=== PATIENT | female | born 1975 | race Caucasian/White ===

== ENCOUNTER → 2020-06-15 08:43 | Outpatient (BNVA) | payer OTHER, SELFPAY | PROVIDERS: Family Provider Family Medicine; PCP Family Medicine; Visit Provider Family Medicine | DX: I10 Essential (primary) hypertension (principal); E11.9 Type 2 diabetes mellitus without complications | CPT/HCPCS: 80053; 80061; 82043; 83036; 85025 ==

== ENCOUNTER → 2020-08-04 12:18 | Outpatient (BNVA) | payer OTHER, SELFPAY | PROVIDERS: Family Provider Family Medicine; PCP Family Medicine; Visit Provider Family Medicine | DX: E78.5 Hyperlipidemia, unspecified (principal) | CPT/HCPCS: 80053 ==

== ENCOUNTER → 2020-09-22 08:42 | Outpatient (BNVA) | payer OTHER, SELFPAY | PROVIDERS: Family Provider Family Medicine; PCP Family Medicine; Visit Provider Family Medicine | DX: E11.9 Type 2 diabetes mellitus without complications (principal); E78.5 Hyperlipidemia, unspecified; R10.13 Epigastric pain | CPT/HCPCS: 80053; 80061; 83036 ==

== ENCOUNTER → 2021-01-04 16:47 | Outpatient (BNVA) | payer OTHER, SELFPAY | PROVIDERS: Family Provider Family Medicine; PCP Family Medicine; Visit Provider Obstetrics & Gynecology | DX: N76.0 Acute vaginitis (principal); B37.3 Candidiasis of vulva and vagina; Z12.31 Encounter for screening mammogram for malignant neoplasm of breast | CPT/HCPCS: 82670; 83001; 84443; 87210 ==

== ENCOUNTER 2021-02-16 15:27 | Outpatient (CLI) | payer OTHER, SELFPAY ==
--- NOTE | 2021-02-16 15:30 | MM_ITS ---
WS: [id number] SCREENING DIGITAL MAMMOGRAM WITH CAD HISTORY: Z12.31 - Encounter for screening mammogram for malignant neoplasm of breast COMPARISON: 12/01/2017 Bilateral CC and MLO views submitted. Computer aided detection analyzed. Breast composition: There are scattered areas of fibroglandular density. There is a lobulated mass in the mid LEFT breast at 5:00 measuring 8 x 7 mm. This mass is new or better visualized since the prio [place] study. MM/[place] [id number] IMPRESSION: BI-RADS: 0-Incomplete: Need additional imaging evaluation FOLLOW UP: Need Additional Imaging LEFT breast: Spot compression views (CC and MLO). True ML. Ultrasound to follow if abnormality persists.
== END 2021-02-16 15:28 | disposition home or self-care (01) ==
LOC: RADSHAW 15:33
PROVIDERS: Family Provider Family Medicine; PCP Family Medicine; Visit Provider Obstetrics & Gynecology
DX: Z12.31 Encounter for screening mammogram for malignant neoplasm of breast (principal); N63.13 Unspecified lump in the right breast, lower outer quadrant
CPT/HCPCS: 77067

== ENCOUNTER 2021-03-05 07:56 | Outpatient (CLI) | payer OTHER, SELFPAY ==
--- NOTE | 2021-03-05 08:00 | MM_ITS ---
WS: [id number] ADDITIONAL VIEWS LEFT MAMMOGRAM LEFT BREAST ULTRASOUND HISTORY: N63.20 - Unspecified lump in the left breast, unspecified quadrant COMPARISON: 02/16/2021 and 12/01/2017 LEFT MAMMOGRAM: Spot compression views and true ML. Nodule measuring 8 mm persists in the LEFT breast at 4:00 at middle depth. Margins are partially obsc ured and the nodule is of slight increased x 5 x 10 mm. There is mild peripheral increased vascularit y. This corresponds in size and appearance to the mammographic abnormality. Benign-appearing lymph n odes in the axilla. MM/[place] [id number] IMPRESSION: BI-RADS: 4-Suspicious Finding-Biopsy Should Be Considered FOLLOW UP: Biopsy Recommended Notified Adelfo Petersen MD at 03/05/2021 9:14 AM. Message left on the answering se rvice as no one answered the phone. Message was left for Dr. Petersen to review t his report and that a biopsy was being recommended.
--- NOTE | 2021-03-05 08:45 | US_ITS ---
WS: [id number] ADDITIONAL VIEWS LEFT MAMMOGRAM LEFT BREAST ULTRASOUND HISTORY: N63.20 - Unspecified lump in the left breast, unspecified quadrant COMPARISON: 02/16/2021 and 12/01/2017 LEFT MAMMOGRAM: Spot compression views and true ML. Nodule measuring 8 mm persists in the LEFT breast at 4:00 at middle depth. Margins are partially obsc ured and the nodule is of slight increased x 5 x 10 mm. There is mild peripheral increased vascularit y. This corresponds in size and appearance to the mammographic abnormality. Benign-appearing lymph n odes in the axilla. US/US breast LT limited* [id number] IMPRESSION: BI-RADS: 4-Suspicious Finding-Biopsy Should Be Considered FOLLOW UP: Biopsy Recommended Notified Adelfo Petersen MD at 03/05/2021 9:14 AM. Message left on the answering se rvice as no one answered the phone. Message was left for Dr. Petersen to review t his report and that a biopsy was being recommended.
== END 2021-03-05 07:57 | disposition home or self-care (01) ==
LOC: RADSHAW 07:59
PROVIDERS: PCP Family Medicine; Visit Provider Obstetrics & Gynecology
DX: N63.23 Unspecified lump in the left breast, lower outer quadrant (principal)
CPT/HCPCS: 76642; 77065

== ENCOUNTER → 2021-03-16 08:24 | Outpatient (BNVA) | payer OTHER, SELFPAY | PROVIDERS: PCP Family Medicine; Visit Provider Family Medicine | DX: E11.9 Type 2 diabetes mellitus without complications (principal); E78.5 Hyperlipidemia, unspecified; I10 Essential (primary) hypertension | CPT/HCPCS: 80053; 80061; 83036 ==

== ENCOUNTER 2021-03-21 08:16 | Outpatient (CLI) | payer OTHER, SELFPAY ==
--- NOTE | 2021-03-21 08:30 | US_ITS ---
WS: [id number] ULTRASOUND-GUIDED LEFT BREAST BIOPSY CLINICAL INFORMATION: N63.20 - Unspecified lump in the left breast, unspecified... COMPARISON: None. FINDINGS: The procedure including risks, benefits, and complications were discussed with the patient who agreed to proceed. Using sterile technique patient was prepped and draped in the usual sterile fashion. Aft er 1% lidocaine utilizing real-time ultrasound guidance 5 14-gauge cores were obtained of the left br east lesion at the 4 o'clock position. Subsequently a titanium clip was placed in the biopsy cavity. No immediate complications. Pathology demonstrates A. Breast, left, 4 o'clock, ultrasound-guided biopsy: -Benign breast tissue with fibrocystic changes and adenomatous hyperplasia. -No malignancy identified. US/[place] [id number] IMPRESSION: 1. Uncomplicated ultrasound-guided left breast biopsy. 2. The pathology demonstrates fibrocystic changes. No malignancy identified. 3. Recommend annual screening mammography BI-RADS: 2-Benign FOLLOW UP: 1 Year Follow-up
== END 2021-03-21 08:17 | disposition home or self-care (01) ==
LOC: RAD 08:19
PROVIDERS: PCP Family Medicine; Visit Provider Obstetrics & Gynecology
DX: N63.23 Unspecified lump in the left breast, lower outer quadrant (principal); N62 Hypertrophy of breast
CPT/HCPCS: 19083; 88305

== ENCOUNTER → 2021-09-17 07:49 | Outpatient (BNVA) | payer OTHER, SELFPAY | PROVIDERS: PCP Family Medicine; Visit Provider Family Medicine | DX: E11.9 Type 2 diabetes mellitus without complications (principal); E78.5 Hyperlipidemia, unspecified; I10 Essential (primary) hypertension | CPT/HCPCS: 80053; 80061; 82043; 83036; 85025 ==

== ENCOUNTER → 2022-03-28 09:24 | Outpatient (BNVA) | payer OTHER, SELFPAY | PROVIDERS: PCP Family Medicine; Visit Provider Family Medicine | DX: E11.9 Type 2 diabetes mellitus without complications (principal); E78.5 Hyperlipidemia, unspecified | CPT/HCPCS: 80053; 80061; 83036 ==

== ENCOUNTER 2022-06-07 22:51 | Emergency (ER) | payer OTHER, SELFPAY ==
[2022-06-07 23:06] VITALS: BP 158/96; PULSE 96; RESP 18; TEMP 36.7; O2SAT 99; BMI 31.8
[2022-06-07 23:09] VITALS: BP 125/100; PULSE 93; RESP 15; O2SAT 98
--- NOTE | 2022-06-07 23:20 | XRR_ITS ---
PROCEDURE INFORMATION: Exam: XR Chest Exam date and time: 06/07/2022 11:43 PM Age: 46 years old Clinical indication: Pain; Chest pressure; Patient HX: C/O palpitations; Additional info: Heart palpitations TECHNIQUE: Imaging protocol: Radiologic exam of the chest. Views: 1 view. COMPARISON: [place] [id number] 03/05/2021 8:18 AM FINDINGS: Lungs: Unremarkable. No consolidation. Pleural spaces: Unremarkable. No pleural effusion. No pneumothorax. Heart/Mediastinum: Unremarkable. No cardiomegaly. Bones/joints: Unremarkable. XR/XR chest 1V portable [id number] IMPRESSION: No acute findings.
--- NOTE | 2022-06-07 23:21 | ECG_ITS ---
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 Measurements Intervals [place] Rate: 77 P: 59 [place]: 144 QRS: 55 QRSD: 81 T: 34 QT: 357 QTc: 406 Interpretive Statements SINUS RHYTHM No previous ECG available for comparison Electronically Signed On 06-08-2022 18:53:36 CDT by Keyon Pappas M.D. [id number]
--- NOTE | 2022-06-07 23:31 | W.ED.ANXIETY ---
HPI - Anxiety General: Chief Complaint: Anxiety Stated Complaint: heart racing Time Seen by Provider: 06/07/22 23:12 History of Present Illness: Patient is a 46-year-old female who comes to the ED with heart palpitations. Patient says she was almost asleep tonight she woke up suddenly and and told her that she thinks there is an earthquake going on. She then said she felt like her heart was racing. She then got her up and they drove here to the emergency department. Patient says by the time she got to the ED her heart palpitations resolved. Here in the ED she feels completely normal and is having no current symptoms. Denies any chest pain, shortness of breath, diaphoresis, nausea during palpitations or afterwards. Endorses having a history of panic attacks. Patient has medical history of hypertension, dyslipidemia and type 2 diabetes. Associated symptoms: Reports palpitations; Deny chest pain, chills, fever(s), headache(s), nausea or vomiting Review of Systems Const: Denies: fever(s), chills or fatigue Eyes: Denies: change in vision or eye discomfort ENMT: Denies: throat pain, odynophagia, nasal discharge or nasal congestion Card: Reports: palpitations; Denies: chest pain, edema, swelling of feet/ankles, dyspnea on exertion or orthopnea Resp: Denies: dyspnea, productive cough or non-productive cough GI: Denies: abdominal pain, nausea, vomiting, diarrhea, constipation or hematochezia : Denies: flank pain, dysuria or hematuria Musc: Denies: neck pain, back pain or extremity swelling Skin/Breast: Denies: rash or new lesions Neuro: Denies: headache(s), numbness in extremities or weakness in extremities PFS ED PFSH: Medical History Dyslipidemia Essential hypertension No pertinent past medical history neghx:thyroid, dvt/pe PCP: Dr. Valenzuela Type 2 diabetes mellitus, without long-term current use of insulin Surgical History H/O section (10/05/96) DX: NR FHT. Performed by Dr. Faustin at [facility] in [place], [place]. H/O section (03/05/99) Repeat section with tubal ligation. Performed by Dr. Faustin at [facility] in [place], [place]. H/O: hysterectomy (09/27/14) LAVH, RSO. Performed by Dr. Petersen at [facility] in [place], [place]. S/P laparoscopy (01/26/13) Laparoscopic lysis of adhesions. Performed by Dr. Petersen at [facility] in [place], [place]. Findings at time of surgery include omental adhesions to the anterior abdominal wall, adhesions of bladder to the uterus, and adhesions of the fallopian tube to the pelvic sidewall. S/P tubal ligation (03/05/99) Performed at time of section. Performed by Dr. Faustin at [facility] in [place], [place]. Family History Father Hyperlipidemia CAD (coronary artery disease) Hypertension Diabetes Mother CAD (coronary artery disease) Grandfather CAD (coronary artery disease) Maternal Grandmother CAD (coronary artery disease) Paternal Diabetes Paternal Grandfather CAD (coronary artery disease) Paternal Grandmother CAD (coronary artery disease) Paternal Stroke Maternal Family/Other Cervical cancer paternal aunt Denies family history of Ovarian cancer Heart disease Breast cancer Bleeding disorder Uterine cancer Thyroid disease Social History Smoking and tobacco status: former smoker Quit status (tobacco): has quit using tobacco Year quit tobacco: 2019 Former quit date comment: smoked for 8 months Alcohol intake: current Alcohol intake frequency: holidays/special occasions only Physical Exam Const: COMMON NORMALS: patient oriented x3 HENMT: COMMON NORMALS: normocephalic HEAD & SCALP: normocephalic MOUTH: Normal oral and palatal mucosa present THROAT: posterior oropharynx normal and uvula midline Neck/C-Spine: COMMON NORMALS: supple GENERAL: Yes normal visual inspection Resp: COMMON NORMALS: normal respiratory effort, No retractions, No use of accessory muscles and clear to auscultation bilaterally AUSCULTATION: clear to auscultation bilaterally Cardio: COMMON NORMALS: regular rate, regular rhythm, S1 normal heart sound present, S2 normal heart sound present, No gallops present (Cardio), No clicks present (Cardio), No murmurs present (Cardio) and Peripheral pulses 2+ throughout RATE: regular rate RHYTHM: regular rhythm HEART SOUNDS: S1 normal heart sound present and S2 normal heart sound present PERIPHERAL PULSES: Peripheral pulses 2+ throughout GI: COMMON NORMALS: Normal to inspection, nondistended, normoactive bowel sounds present, Soft to palpation, non-tender and no masses PALPATION: Yes Soft to palpation : COMMON NORMALS: Yes no CVA tenderness BLADDER/KIDNEY EXAM: Yes no CVA tenderness Back/Pelvis: COMMON NORMALS: no CVA tenderness Extremity: COMMON NORMALS: normal to inspection Neuro: COMMON NORMALS: patient oriented x3 GAIT: Yes Normal gait present Skin: GENERAL SKIN EXAM: dry skin Course Vital Signs: Vital signs: Vital Signs Temperature 98.0 F 06/07/22 23:06 Pulse Rate 85 06/08/22 01:47 Respiratory Rate 20 H 06/08/22 01:47 Blood Pressure 139/86 06/08/22 01:47 Pulse Oximetry 98 06/08/22 01:47 Oxygen Delivery Me thod 06/07/22 23:06 MDM - Anxiety Medical Decision Making Patient is a 46-year-old female comes to the ED with palpitations. She has a history of type 2 diabetes and hypertension. Today she woke up thinking there was a earthquake and then had some palpitations. Her palpitations resolved before she arrived to the ED and here in the ED she had no symptoms and was feeling normal. Denies any chest pain, abdominal pain, nausea/vomiting or shortness of breath. Vitals are stable. Exam is benign and patient appears nontoxic and in no acute distress. Chest x-ray shows no acute findings. Patient had a glucose level of 349 here in the ED but the rest of CBC and CMP were unremarkable. Troponin negative. EKG showed normal sinus rhythm with no arrhythmia or ST segment elevation seen. Patient was given dose of insulin here in the ED and blood sugar went down to 247. She was stable for discharge home and diagnosed with hyperglycemia and palpitations. She was told to follow-up with her PCP within the next week for reevaluation and to discuss getting a Holter monitor. Strict return to ED precautions given. Patient understood and agreed with plan. Lab Data I reviewed the patient's lab results. : 06/07/22 23:40 06/07/22 23:40 Radiology Impressions Chest X-Ray 06/07/22 23:20 IMPRESSION: No acute findings. Laboratory Results WBC 10.4 10^3/uL (4.0-10.0) H 06/07/22 23:40 RBC 4.67 10^6/uL (4.1-5.3) 06/07/22 23:40 Hgb 13.3 g/dL (11.5-15.3) 06/07/22 23:40 Hct 41.8 % (37.0-47.0) 06/07/22 23:40 MCV 89.5 fl (81-99) 06/07/22 23:40 MCH 28.5 pg (28.0-34.0) 06/07/22 23:40 MCHC 31.8 g/dL (30.0-36.0) 06/07/22 23:40 RDW 12.0 % (12.1-15.1) L 06/07/22 23:40 Plt Count 327 10^3/cmm (130-400) 06/07/22 23:40 MPV 10.9 fL (7.4-10.4) H 06/07/22 23:40 Neut % (Auto) 53.3 % 06/07/22 23:40 Lymph % (Auto) 33.4 % 06/07/22 23:40 Cobb % (Auto) 7.4 % 06/07/22 23:40 Eos % (Auto) 4.5 % 06/07/22 23:40 Baso % (Auto) 1.0 % 06/07/22 23:40 Neut # (Auto) 5.53 10^3/uL (1.8-7.7) 06/07/22 23:40 Lymph # (Auto) 3.5 10^3/uL (0.8-4.8) 06/07/22 23:40 Cobb # (Auto) 0.8 10^3/uL (0.2-0.9) 06/07/22 23:40 Eos # (Auto) 0.5 10^3/uL (0.0-0.8) 06/07/22 23:40 Baso # (Auto) 0.1 10^3/uL (0.0-0.1) 06/07/22 23:40 Nucleated RBC % (auto) 0 % 06/07/22 23:40 Nucleated RBCs # 0.0 /100WBC 06/07/22 23:40 Sodium 136 mmol/L (136-145) 06/07/22 23:40 Potassium 4.2 mmol/L (3.5-5.1) 06/07/22 23:40 Chloride 99 mmol/L (98-107) 06/07/22 23:40 Carbon Dioxide 24 mmol/L (22-29) 06/07/22 23:40 Anion Gap 17.2 (5-19) 06/07/22 23:40 BUN 9 mg/dL (6-20) 06/07/22 23:40 Creatinine 0.8 mg/dL (0.5-0.9) 06/07/22 23:40 GFR Calculation 77.9 mL/min (90-130) L 06/07/22 23:40 Glucose 349 mg/dL (65-115) H 06/07/22 23:40 POC Glucose 247 mg/dL (70-110) H 06/08/22 01:42 Calculated Osmolality 295 mOsm/kg (285-295) 06/07/22 23:40 Calcium 9.9 mg/dL (8.5-10.5) 06/07/22 23:40 Total Bilirubin 0.2 mg/dL (0.15-1.2) 06/07/22 23:40 AST 15 U/L (0-32) 06/07/22 23:40 ALT 22 U/L (0-33) 06/07/22 23:40 Alkaline Phosphatase 85 IU/L (35-105) 06/07/22 23:40 Troponin T Baseline 6 ng/L (0-10) 06/07/22 23:40 Total Protein 7.1 g/dL (6.6-8.7) 06/07/22 23:40 Albumin 4.6 g/dL (3.5-5.2) 06/07/22 23:40 Globulin 2.5 g/dL (1.3-4.6) 06/07/22 23:40 EKG Data EKG 1: EKG interpretation date: 06/07/22 Interpretation: Chest X-Ray 06/07/22 23:20 IMPRESSION: No acute findings. Sinus rhythm, 77 bpm, no ST segment elevation or depression seen. No arrhythmias noted. Other EKG comments: Chest X-Ray 06/07/22 23:20 IMPRESSION: No acute findings. Discharge Plan Discharge Patient Disposition: Home Clinical Impression: Heart palpitations Hyperglycemia due to type 2 diabetes mellitus Qualifiers: Diabetes mellitus termination clerk insulin use: unspecified care home insulin use status Qualified Code(s): E11.65 - Type 2 diabetes mellitus with hyperglycemia Condition: Stable Prescriptions: No Action metformin 500 mg tablet extended release 24 hr See Rx Instructions .ROUTE .COMPLEX Qty: 90 1RF Dose Instruction: Take 1 tablet by mouth once daily Rx Instructions: Take 1 tablet by mouth once daily lisinopril 10 mg tablet 10 mg PO DAILY Qty: 90 1RF atorvastatin 80 mg tablet 80 mg PO DAILY Qty: 90 1RF Trulicity 0.75 mg/0.5 mL pen injector 0.75 mg SUBCUT .weekly 90 Days Qty: 2 2RF Discharge Orders: Discharge ED (Routine); Ordered 06/08/22 Ordered By: Amando Snell Referrals: Jacqueline Valenzuela DO [Primary Care Provider] - Discharge Diet: Regular Discharge Activity: Resume usual activity Patient Instructions: Hyperglycemia, Heart Palpitations (DC) Activity Restrictions/Additional Instructions: Follow-up with primary care physician within the next 3 to 5 days for reevaluation. Discuss with primary care physician the possibility getting a Holter monitor for palpitations. Continue taking all home medications as previously prescribed. Return to the ER or your medical provider if condition worsens. Please read and understand discharge instructions. Thank you for choosing [facility] for your healthcare needs today. Please realize this is an emergency room and that we are providing you with a medical screening exam and this may not be complete and all inclusive of all the testing and or work up that you may need to determine your ailment or severity of your illness. It is very important that you follow up as instructed or that you return to the Emergency Department should you have concerns or if your condition changes or worsens in any way. Coding Level of Care Code ED Cardiograph Operator for Georgi Hernández Exam Comprehensive
[2022-06-07 23:49] LABS: Basophils # 0.1 10^3/uL (0.0-0.1); Eosinophils # 0.5 10^3/uL (0.0-0.8); Eosinophils % 4.5 %; Hematocrit 41.8 % (37.0-47.0); Hemoglobin 13.3 g/dL (11.5-15.3); Lymphocytes # 3.5 10^3/uL (0.8-4.8); Lymphocytes % 33.4 %; Mean Corpuscular HGB Conc 31.8 g/dL (30.0-36.0); Mean Corpuscular Hemoglobin 28.5 pg (28.0-34.0); Mean Corpuscular Volume 89.5 fl (81-99); Mean Platelet Volume 10.9 fL (7.4-10.4); Monocytes # 0.8 10^3/uL (0.2-0.9); Monocytes % 7.4 %; Neutrophils # 5.53 10^3/uL (1.8-7.7); Neutrophils % 53.3 %; Nucleated Red Blood Cells % 0 %; Platelet Count 327 10^3/cmm (130-400); Red Blood Count 4.67 10^6/uL (4.1-5.3); White Blood Count 10.4 10^3/uL (4.0-10.0)
[2022-06-08 00:12] LABS: Alanine Aminotransferase 22 U/L (0-33); Albumin Level 4.6 g/dL (3.5-5.2); Alkaline Phosphatase 85 IU/L (35-105); Aspartate Amino Transferase 15 U/L (0-32); Blood Urea Nitrogen 9 mg/dL (6-20); Calcium 9.9 mg/dL (8.5-10.5); Carbon Dioxide 24 mmol/L (22-29); Chloride 99 mmol/L (98-107); Globulin 2.5 g/dL (1.3-4.6); Glomerular Filtration Rate 77.9 mL/min (90-130); Glucose 349 mg/dL (65-115); Osmolality Calculated 295 mOsm/kg (285-295); Sodium 136 mmol/L (136-145); Total Bilirubin 0.2 mg/dL (0.15-1.2); Total Protein 7.1 g/dL (6.6-8.7)
[2022-06-08 00:13] LABS: Anion Gap 17.2 (5-19); Potassium 4.2 mmol/L (3.5-5.1); Troponin(5th) Baseline 6 ng/L (0-10)
[2022-06-08 00:39] VITALS: BP 130/84; PULSE 76; RESP 18; O2SAT 98
[2022-06-08 01:00] VITALS: BP 139/86; PULSE 85; RESP 20; O2SAT 98
[2022-06-08] MEDS: insulin regular-human 100 units/1 mL 8 UNIT IVP (01:11)
[2022-06-08 01:47] VITALS: BP 139/86; PULSE 85; RESP 20; O2SAT 98
[2022-06-08 01:49] LABS: Glucose Point of Care 247 mg/dL (70-110)
== END 2022-06-08 01:50 | disposition home or self-care (01) ==
PROVIDERS: Emergency Provider Physician Assistant; PCP Family Medicine
DX: R00.2 Palpitations (principal); E11.65 Type 2 diabetes mellitus with hyperglycemia; Z79.899 Other long term (current) drug therapy; Z79.84 Long term (current) use of oral hypoglycemic drugs; Z87.891 Personal history of nicotine dependence; E78.5 Hyperlipidemia, unspecified; I10 Essential (primary) hypertension
CPT/HCPCS: 36416; 71045; 80053; 82962; 84484; 85025; 93005; 96374; 99285; J1815

== ENCOUNTER 2023-06-10 20:21 | Emergency (ER) | payer OTHER, SELFPAY ==
[2023-06-10 20:27] VITALS: BP 167/100; PULSE 110; RESP 14; TEMP 36.6; O2SAT 100; BMI 32.8
[2023-06-10 22:04] VITALS: BP 189/110; PULSE 94; RESP 19; O2SAT 96
--- NOTE | 2023-06-10 22:04 | ECG_ITS ---
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 Measurements Intervals [place] Rate: 89 P: 61 [place]: 139 QRS: 49 QRSD: 82 T: 40 QT: 351 QTc: 428 Interpretive Statements SINUS RHYTHM Compared to ECG 06/07/2022 23:30:32 No significant changes Electronically Signed On 06-10-2023 22:58:05 CDT by Trey Gannon M.D. [id number]
--- NOTE | 2023-06-10 22:10 | XRR_ITS ---
PROCEDURE INFORMATION: Exam: XR Chest Exam date and time: 06/10/2023 10:28 PM Age: 47 years old Clinical indication: Pain; Chest pressure; Additional info: Chest discomfort TECHNIQUE: Imaging protocol: Radiologic exam of the chest. Views: 1 view. COMPARISON: CR XR chest 1V portable [id number] 06/07/2022 11:43 PM FINDINGS: Lungs: Unremarkable. No consolidation. Pleural spaces: Unremarkable. No pleural effusion. No pneumothorax. Heart/Mediastinum: Unremarkable. No cardiomegaly. Bones/joints: Unremarkable. XR/XR chest 1V portable [id number] IMPRESSION: No acute findings.
--- NOTE | 2023-06-10 22:11 | ED_ITS ---
HPI - Arrhythmia/Palpitations General: Chief Complaint: Arrhythmia/Palpitations Stated Complaint: light headed, heart fluttering Time Seen by Provider: 06/10/23 22:04 History of Present Illness: 47-year-old female with a history of elevated cholesterol, hypertension, diabetes who lost her health insurance in December. She has been off of all of her medications since then. Patient reports she has had a little bit of sinus congestion and runny nose for the last 2 days. She used some Sudafed yesterday and then today used some phenylephrine. Today she was feeling her heart flut tering and sort of lightheaded. She came for evaluation and found that her blood pressure was quite high. She does not have any history of arrhythmia, coronary artery disease, smoking, or lung disease to her knowledge. She has been without her diabetes medicine for a long time and last time this happened her blood sugar was very high. She does not check her blood sugar at home. She reports she is always thirsty and has not noticed any significant change. No polyuria or polyphagia. No anxiety or panic. She is not having any chest pain. Her symptoms of palpitations stopped when she got to the waiting room and rested. Associated symptoms: Deny nausea, syncope or vomiting Review of Systems General: Reports: 10 or more systems reviewed and unremarkable except in HPI and below Const: Denies: fever(s), chills or body aches Eyes: Denies: change in vision ENMT: Denies: throat pain Card: Denies: chest pain, edema or syncope Resp: Denies: dyspnea or productive cough GI: Denies: abdominal pain, nausea, vomiting or diarrhea : Denies: flank pain, dysuria or urinary frequency Musc: Denies: neck pain, back pain, extremity pain or extremity swelling Skin/Breast: Denies: rash or erythema Neuro: Denies: headache(s), numbness in extremities, weakness in extremities, lack of coordination or difficulty walking PFSH ED PFSH: Medical History Dyslipidemia Essential hypertension No pertinent past medical history neghx:thyroid, dvt/pe PCP: Dr. Valenzuela Type 2 diabetes mellitus, without long-term current use of insulin Surgical History H/O section (10/05/96) DX: NR FHT. Performed by Dr. Faustin at [facility] in [place], [place]. H/O section (03/05/99) Repeat section with tubal ligation. Performed by Dr. Faustin at [facility] [place] in [place], [place]. H/O: hysterectomy (09/27/14) LAVH, RSO. Performed by Dr. Petersen at [facility] [place] in [place], [place]. S/P laparoscopy (01/26/13) Laparoscopic lysis of adhesions. Performed by Dr. Petersen at [facility] [place] in [place], [place]. Findings at time of surgery include omental adhesions to the anterior abdominal wall, adhesions of bladder to the uterus, and adhesions of the fallopian tube to the pelvic sidewall. S/P tubal ligation (03/05/99) Performed at time of section. Performed by Dr. Faustin at [facility] [place] in [place], [place]. Family History Father Hyperlipidemia CAD (coronary artery disease) Hypertension Diabetes Mother CAD (coronary artery disease) Grandfather CAD (coronary artery disease) Maternal Grandmother CAD (coronary artery disease) Paternal Diabetes Paternal Grandfather CAD (coronary artery disease) Paternal Grandmother CAD (coronary artery disease) Paternal Stroke Maternal Family/Other Cervical cancer paternal aunt Denies family history of Ovarian cancer Heart disease Breast cancer Bleeding disorder Uterine cancer Thyroid disease Social History Smoking and tobacco status: former smoker Quit status (tobacco): has quit using tobacco Year quit tobacco: 2019 Former quit date comment: smoked for 8 months Alcohol intake: current Alcohol intake frequency: holidays/special occasions only Substance/Drug Use: never Physical Exam 2 Const: COMMON NORMALS: no limitations, alert and well nourished EXAM LIMITATIONS: no altered mental status HENMT: COMMON NORMALS: normocephalic, atraumatic and external ears normal HEAD & SCALP: normocephalic and atraumatic EXTERNAL EAR: Yes external ears normal MOUTH: no muffled voice Eye: COMMON NORMALS: EOMs intact bilaterally, conjunctivae normal and no scleral icterus CONJUNCTIVA: Yes conjunctivae normal Neck/C-Spine: COMMON NORMALS: no JVD GENERAL: Yes normal visual inspection and Yes trachea midline Resp: COMMON NORMALS: normal respiratory effort, No use of accessory muscles and clear to auscultation bilaterally AUSCULTATION: clear to auscultation bilaterally Cardio: COMMON NORMALS: no JVD and regular rhythm RATE: tachycardic RHY THM: regular rhythm OTHER: Heart rate in the 90s when I entered, goes up to 105 as I start talking to her. GI: COMMON NORMALS: Soft to palpation and non-tender PALPATION: Yes Soft to palpation and No Guarding due to palpation present (GI) Extremity: COMMON NORMALS: normal to inspection Neuro: COMMON NORMALS: moves all extremities, no focal motor deficits and no sensory deficits noted SENSORIUM/ORIENTATION: Yes alert SPEECH: speech normal Psych: COMMON NORMALS: mental status grossly normal, Normal thought process present, cooperative, normal affect and speech normal SPEECH: Yes normal speech THOUGHT PROCESS: Normal thought process present Skin: COMMON NORMALS: no rashes or lesions noted, turgor normal and no jaundice GENERAL SKIN EXAM: no rashes or lesions noted and turgor normal Course Vital Signs: Vital signs: Vital Signs Temperature 97.9 F 06/10/23 20:27 Pulse Rate 90 06/11/23 00:00 Respiratory Rate 16 06/11/23 00:00 Blood Pressure 134/83 06/11/23 00:00 Pulse Oximetry 97 06/11/23 00:00 Oxygen Delivery Me thod Room Air 06/11/23 00:00 MDM - Arrhythmia/Palpitations Medical Decision Making Differential diagnosis includes hypertensive urgency, medication side effect, hyperglycemia, DKA, anemia, paroxysmal arrhythmia, ACS, electrolyte abnormality, acid-base disturbance, multiple others. She does not appear toxic. Her symptoms resolved on arrival. She has a normal work of breathing, clear lungs and an oxygen saturation of 100%. Clinically I am not concerned for pulmonary embolism. She does not have any lower extremity swelling, JVD, orthopnea or crackles to suggest CHF. EKG my interpretation from 2203 shows a sinus rhythm, rate 89, normal axis, borderline elevated P waves which would suggest some left atrial enlargement, no concerning ST segment elevations or depressions, no ectopy. Update. Patient's white blood cell count is 10.8 Platelets 403,000 Glucose 354 but no signs of acid-base disturbance, suggesting chronic uncontrolled hyperglycemia. Baseline troponin is normal. BG down to 239 Patient's last blood pressure was 130s over 80s. Her heart rates in the 80s. She feels much better. I did assistant corporation counsel her about her hyperglycemia and how having uncontrolled diabetes leads to massively increased risk for chronic illness and cardiovascular disease. She states she does have insurance and is motivated to get back into her doctor and start taking her medications. I will refill her Victoza, lisinopril. Start her on metformin 500 ER Lab Data 06/10/23 22:08 06/10/23 22:08 Radiology Impressions Chest X-Ray 06/10/23 22:10 IMPRESSION: No acute findings. Laboratory Results WBC 10.8 10^3/uL (4.0-10.0) H 06/10/23 22:08 RBC 4.67 10^6/uL (4.1-5.3) 06/10/23 22:08 Hgb 13.5 g/dL (11.5-15.3) 06/10/23 22:08 Hct 39.0 % (37.0-47.0) 06/10/23 22:08 MCV 83.5 fl (81-99) 06/10/23 22:08 MCH 28.9 pg (28.0-34.0) 06/10/23 22:08 MCHC 34.6 g/dL (30.0-36.0) 06/10/23 22:08 RDW 11.9 % (12.1-15.1) L 06/10/23 22:08 Plt Count 403 10^3/cmm (130-400) H 06/10/23 22:08 MPV 10.8 fL (7.4-10.4) H 06/10/23 22:08 Neut % (Auto) 64.7 % 06/10/23 22:08 Lymph % (Auto) 24.0 % 06/10/23 22:08 [place] % (Auto) 7.0 % 06/10/23 22:08 Eos % (Auto) 3.1 % 06/10/23 22:08 Baso % (Auto) 0.9 % 06/10/23 22:08 Neut # (Auto) 6.99 10^3/uL (1.8-7.7) 06/10/23 22:08 Lymph # (Auto) 2.6 10^3/uL (0.8-4.8) 06/10/23 22:08 [place] # (Auto) 0.8 10^3/uL (0.2-0.9) 06/10/23 22:08 Eos # (Auto) 0.3 10^3/uL (0.0-0.8) 06/10/23 22:08 Baso # (Auto) 0.1 10^3/uL (0.0-0.1) 06/10/23 22:08 Nucleated RBC % (auto) 0 % 06/10/23 22:08 Nucleated RBCs # 0.0 /100WBC 06/10/23 22:08 Sodium 136 mmol/L (136-145) 06/10/23 22:08 Potassium 4.2 mmol/L (3.5-5.1) 06/10/23 22:08 Chloride 98 mmol/L (98-107) 06/10/23 22:08 Carbon Dioxide 27 mmol/L (22-29) 06/10/23 22:08 Anion Gap 15.2 (5-19) 06/10/23 22:08 BUN 10 mg/dL (6-20) 06/10/23 22:08 Creatinine 0.7 mg/dL (0.5-0.9) 06/10/23 22:08 GFR Calculation 90.5 mL/min (90-130) 06/10/23 22:08 Glucose 354 mg/dL (65-115) H 06/10/23 22:08 Calculated Osmolality 295 mOsm/kg (285-295) 06/10/23 22:08 Calcium 10.2 mg/dL (8.5-10.5) 06/10/23 22:08 Total Bilirubin 0.2 mg/dL (0.15-1.2) 06/10/23 22:08 AST 12 U/L (0-32) 06/10/23 22:08 ALT 20 U/L (0-33) 06/10/23 22:08 Alkaline Phosphatase 79 U/L (35-105) 06/10/23 22:08 Troponin T Baseline 6 ng/L (0-10) 06/10/23 22:08 NT-Pro-B Natriuret Pep 36 pg/mL (0-125) 06/10/23 22:08 Total Protein 7.5 g/dL (6.6-8.7) 06/10/23 22:08 Albumin 4.9 g/dL (3.5-5.2) 06/10/23 22:08 Globulin 2.6 g/dL (1.3-4.6) 06/10/23 22:08 Discharge Plan Discharge Patient Disposition: Home Clinical Impression: Essential hypertension, Type 2 diabetes mellitus, without long-term current use of insulin, Palpitations Condition: Stable Prescriptions: New metformin 500 mg tablet extended release 24 hr 500 mg PO DAILY Qty: 30 2RF Continued lisinopril 10 mg tablet 10 mg PO DAILY Qty: 90 2RF Victoza 2-Chad 0.6 mg/0.1 mL (18 mg/3 mL) pen injector See Rx Instructions .ROUTE .COMPLEX Qty: 6 2RF Dose Instruction: inject .6mg SUBCUTANEOUSLY EVERY DAY Rx Instructions: inject .6mg SUBCUTANEOUSLY EVERY DAY Discontinued cyclobenzaprine 5 mg tablet 5 mg PO TID PRN (Reason: muscle spasm) Qty: 7 0RF cephalexin 500 mg capsule 500 mg PO TID 10 Days Qty: 30 0RF atorvastatin 80 mg tablet 80 mg PO DAILY Qty: 90 1RF Discharge Orders: Discharge ED (Routine); Ordered 06/11/23 Ordered By: Alberto Carrera Referrals: Jacqueline Valenzuela DO [Primary Care Provider] - 7-10 days (uncontrolled DM, HTN, obesity, ? HLD) Discharge Diet: Diabetic Discharge Activity: Resume usual activity Patient Instructions: Diabetes and Diet, Hypertension (ED), Diabetic Hyperglycemia (ED), Diabetes and Exercise (ED), Opioid Safety, Pain Management Activity Restrictions/Additional Instructions: Your diabetes and blood pressure are out of control. I have refilled your medications. You need to start checking your blood sugar and blood pressure and making a journal to record the entries. You need to make a appointment with your primary care doctor for follow-up and bring the results of your blood sugar and blood pressure with you. Additional information has been provided as handouts, please take the time to read and understand this information. It is very important that you follow up with a Doctor as discussed during your visit today, the information to contact your doctor is included in your discharge instructions. Failure to adhere to your follow up instructions may lead to severe disability, injury, or so please make sure to keep your appointments. Please return to the Emergency Department immediately and without fail if you experience any new, worsening, or concerning problems such as:_ chest pain, shortness of breath, headache or body pain, fever, lightheadedness, weakness, numbness, or any other concerning symptoms. If taking a substance like an opiate or other strong pain medication, please do not drive or operate heavy machinery while under the effects of this medicine. Thank you for allowing us to participate in your care today. Coding Level of Care Code ED Hotel Security Officer for Georgi Hernández
[2023-06-10 22:18] LABS: Basophils # 0.1 10^3/uL (0.0-0.1); Basophils % 0.9 %; Eosinophils # 0.3 10^3/uL (0.0-0.8); Eosinophils % 3.1 %; Hemoglobin 13.5 g/dL (11.5-15.3); Lymphocytes # 2.6 10^3/uL (0.8-4.8); Mean Corpuscular HGB Conc 34.6 g/dL (30.0-36.0); Mean Corpuscular Hemoglobin 28.9 pg (28.0-34.0); Mean Corpuscular Volume 83.5 fl (81-99); Mean Platelet Volume 10.8 fL (7.4-10.4); Monocytes # 0.8 10^3/uL (0.2-0.9); Neutrophils # 6.99 10^3/uL (1.8-7.7); Neutrophils % 64.7 %; Nucleated Red Blood Cells % 0 %; Platelet Count 403 10^3/cmm (130-400); Red Blood Count 4.67 10^6/uL (4.1-5.3); Red Cell Distribution Width 11.9 % (12.1-15.1); White Blood Count 10.8 10^3/uL (4.0-10.0)
[2023-06-10 22:33] LABS: Troponin(5th) Baseline 6 ng/L (0-10)
[2023-06-10] MEDS: labetalol 5 mg/mL SDV 20mL 20 MG IVP (22:34)
[2023-06-10] MEDS: sodium chloride 0.9% 1,000 ML 999 ML IV (22:36)
[2023-06-10 22:40] LABS: Alanine Aminotransferase 20 U/L (0-33); Albumin Level 4.9 g/dL (3.5-5.2); Alkaline Phosphatase 79 U/L (35-105); Anion Gap 15.2 (5-19); Aspartate Amino Transferase 12 U/L (0-32); Blood Urea Nitrogen 10 mg/dL (6-20); Calcium 10.2 mg/dL (8.5-10.5); Carbon Dioxide 27 mmol/L (22-29); Chloride 98 mmol/L (98-107); Globulin 2.6 g/dL (1.3-4.6); Glomerular Filtration Rate 90.5 mL/min (90-130); Glucose 354 mg/dL (65-115); NT Pro B Type Natriuretic Pept 36 pg/mL (0-125); Osmolality Calculated 295 mOsm/kg (285-295); Potassium 4.2 mmol/L (3.5-5.1); Sodium 136 mmol/L (136-145); Total Bilirubin 0.2 mg/dL (0.15-1.2); Total Protein 7.5 g/dL (6.6-8.7)
[2023-06-10] MEDS: insulin lispro 100 unit/1 mL 10 UNIT SUBCUT (23:14)
[2023-06-10] MEDS: insulin glargine 100 units/1 mL 12 UNIT SUBCUT (23:16)
[2023-06-10] MEDS: lisinopril 10 mg Tablet PO (23:25)
[2023-06-10 23:27] VITALS: BP 149/92; PULSE 84; RESP 21; O2SAT 95
--- NOTE | 2023-06-10 23:28 | PC.NURSE ---
pt's b/p currently 149/92, per Dr. Carrera hold Clonidine 0.1mg until b/p recheck.
[2023-06-11] VITALS: BP 134/83; PULSE 90; RESP 16; O2SAT 97
[2023-06-11 00:24] VITALS: BP 134/83
[2023-06-11 00:25] VITALS: BP 134/83; PULSE 89; RESP 18; O2SAT 97
[2023-06-12 05:13] LABS: Glucose Point of Care 239 mg/dL (70-110)
== END 2023-06-11 00:49 | disposition home or self-care (01) ==
PROVIDERS: Emergency Provider Emergency Medicine; PCP Family Medicine
DX: I10 Essential (primary) hypertension (principal); E11.9 Type 2 diabetes mellitus without complications; R00.2 Palpitations; Z87.891 Personal history of nicotine dependence; E78.5 Hyperlipidemia, unspecified
CPT/HCPCS: 36416; 71045; 80053; 82962; 83880; 84484; 85025; 93005; 96361; 96372; 96374; 99285; J1815; J3490; J7030

== ENCOUNTER → 2023-06-11 09:52 | Outpatient (BNVA) | payer OTHER, SELFPAY | PROVIDERS: PCP Family Medicine; Visit Provider Nurse Practitioner | DX: R42 Dizziness and giddiness (principal); R73.9 Hyperglycemia, unspecified | CPT/HCPCS: 82962 ==

== ENCOUNTER 2023-06-12 13:05 | Emergency (ER) | payer OTHER, SELFPAY ==
[2023-06-12 13:45] VITALS: BP 167/96; PULSE 98; RESP 16; TEMP 37.1; O2SAT 99
[2023-06-12 13:56] VITALS: BMI 32.9
--- NOTE | 2023-06-12 19:20 | ECG_ITS ---
[facility] Test Date: 2023-06-12 Pat Name: Jessica King Department: Room: Gender: Female Erp Pm: : 1975 Requested By: Elie Giordano Order Number: [id number] Cheri MD: Trey Gannon M.D. Measurements Intervals [place] Rate: 81 P: 57 MD: 140 QRS: -1 QRSD: 82 T: 29 QT: 357 QTc: 416 Interpretive Statements SINUS RHYTHM POSSIBLE ANTERIOR MYOCARDIAL INFARCTION , PROBABLY OLD [30 ms Q WAVE IN V3/V4, OR R < 0.2 mV IN V4] Compared to ECG 06/10/2023 22:04:06 Myocardial infarct finding now present Electronically Signed On 06-13-2023 9:25:56 CDT by Trey Gannon M.D. [email or web address]
--- NOTE | 2023-06-12 19:30 | W.ED.GENADLT ---
HPI - General Adult General: Chief complaint: General Medical Stated complaint: high blood pressure was 166/122 Time Seen by Provider: 06/12/23 13:56 Source: patient Mode of arrival: ambulatory Limitations: no limitations History of Present Illness: 47-year-old female states been having headache over the last 4 to 5 days. States she has been on blood pressure meds but is not on any currently. She states that today it has been running in the 160s she was seen here 2 days ago states she was not prescribed any meds and does not follow-up with her primary care doctor until next week. She had a mild headache denies any chest pain denies any shortness of breath. Associated symptoms: Reports headache(s); Deny chest pain, dyspnea, nausea, rash or vomiting Review of Systems Const: Denies: fever(s) or chills ENMT: Denies: throat pain or dental pain Card: Denies: chest pain Resp: Denies: dyspnea GI: Denies: abdominal pain, nausea or vomiting Musc: Denies: neck pain or back pain Skin/Breast: Denies: rash Neuro: Reports: headache(s) PFSH ED PFSH: Medical History Dyslipidemia Essential hypertension No pertinent past medical history neghx:thyroid, dvt/pe PCP: Dr. Valenzuela Type 2 diabetes mellitus, without long-term current use of insulin Surgical History H/O section (10/05/96) DX: NR FHT. Performed by Dr. Faustin at [facility] in [place], [place]. H/O section (03/05/99) Repeat section with tubal ligation. Performed by Dr. Faustin at [facility] in [place], [place]. H/O: hysterectomy (09/27/14) CARRIE EDMOND. Performed by Dr. Petersen at [facility] in [place], [place]. S/P laparoscopy (01/26/13) Laparoscopic lysis of adhesions. Performed by Dr. Petersen at [facility] in [place], [place]. Findings at time of surgery include omental adhesions to the anterior abdominal wall, adhesions of bladder to the uterus, and adhesions of the fallopian tube to the pelvic sidewall. S/P tubal ligation (03/05/99) Performed at time of section. Performed by Dr. Faustin at [facility] in [place], [place]. Family History Father Hyperlipidemia CAD (coronary artery disease) Hypertension Diabetes Mother CAD (coronary artery disease) Grandfather CAD (coronary artery disease) Maternal Grandmother CAD (coronary artery disease) Paternal Diabetes Paternal Grandfather CAD (coronary artery disease) Paternal Grandmother CAD (coronary artery disease) Paternal Stroke Maternal Family/Other Cervical cancer paternal aunt Denies family history of Ovarian cancer Heart disease Breast cancer Bleeding disorder Uterine cancer Thyroid disease Social History Smoking and tobacco status: former smoker Quit status (tobacco): has quit using tobacco Year quit tobacco: 2019 Former quit date comment: smoked for 8 months Alcohol intake: current Alcohol intake frequency: holidays/special occasions only Substance/Drug Use: never Physical Exam Const: COMMON NORMALS: no acute distress, patient oriented x3 and healthy appearing HENMT: COMMON NORMALS: normocephalic and atraumatic HEAD & SCALP: normocephalic and atraumatic Neck/C-Spine: COMMON NORMALS: full ROM Chest: COMMONS NORMALS: normal inspection of the chest Resp: COMMON NORMALS: normal respiratory effort Cardio: COMMON NORMALS: regular rate, regular rhythm and No murmurs present (Cardio) RATE: regular rate RHYTHM: regular rhythm GI: COMMON NORMALS: non-tender and no masses INSPECTION: Yes normal to inspection Extremity: COMMON NORMALS: normal to inspection and full ROM Neuro: COMMON NORMALS: patient oriented x3, moves all extremities and no focal motor deficits Psych: COMMON NORMALS: mental status grossly normal, Normal thought process present and cooperative THOUGHT PROCESS: Normal thought process present Skin: COMMON NORMALS: no rashes or lesions noted and no wounds GENERAL SKIN EXAM: no rashes or lesions noted Course Vital Signs: Vital signs: Vital Signs Temperature 98.8 F 06/12/23 13:45 Pulse Rate 100 06/12/23 20:07 Respiratory Rate 18 06/12/23 20:07 Blood Pressure 154/103 06/12/23 20:07 Pulse Oximetry 100 06/12/23 20:07 Oxygen Delivery Me thod Room Air 06/12/23 13:45 MDM - General Adult Medical Decision Making Patient presents here with hypertension her blood pressure here is improved blood work is normal we will start her on Norvasc as she is on no meds she is to take a log of her blood pressure and follow-up with her PCP as scheduled next week return if worsening. Medical Records I reviewed the patient's medical records. Lab Data I reviewed the patient's lab results. 06/12/23 19:30 06/12/23 19:30 Laboratory Results WBC 11.1 10^3/uL (4.0-10.0) H 06/12/23 19:30 RBC 5.15 10^6/uL (4.1-5.3) 06/12/23 19: Hgb 14.7 g/dL (11.5-15.3) 06/12/23 19: Hct 44.7 % (37.0-47.0) 06/12/23 19: MCV 86.8 fl (81-99) 06/12/23 19: MCH 28.5 pg (28.0-34.0) 06/12/23 19: MCHC 32.9 g/dL (30.0-36.0) 06/12/23 19: RDW 11.9 % (12.1-15.1) L 06/12/23 19: Plt Count 378 10^3/cmm (130-400) 06/12/23 19:30 MPV 11.0 fL (7.4-10.4) H 06/12/23 19:30 Neut % (Auto) 62.4 % 06/12/23: Lymph % (Auto) 28.1 % 06/12/23 19:30 [place] % (Auto) 5.6 % 06/12/23 19:30 Eos % (Auto) 2.7 % 06/12/23: Baso % (Auto) 0.9 % 06/12/23 19: Neut # (Auto) 6.93 10^3/uL (1.8-7.7) 06/12/23 19:30 Lymph # (Auto) 3.1 10^3/uL (0.8-4.8) 06/12/23 19: [place] # (Auto) 0.6 10^3/uL (0.2-0.9) 06/12/23 19:30 Eos # (Auto) 0.3 10^3/uL (0.0-0.8) 06/12/23 19:30 Baso # (Auto) 0.1 10^3/uL (0.0-0.1) 06/12/23 19:30 Nucleated RBC % (auto) 0 % 06/12/23 19:30 Nucleated RBCs # 0.0 /100WBC 06/12/23 19:30 Sodium Cancelled 06/12/23 19:30 Potassium Cancelled 06/12/23 19:30 Chloride Cancelled 06/12/23 19:30 Carbon Dioxide Cancelled 06/12/23 19:30 Anion Gap Cancelled 06/12/23 19:30 BUN Cancelled 06/12/23 19:30 Creatinine Cancelled 06/12/23 19:30 GFR Calculation Cancelled 06/12/23 19:30 Glucose Cancelled 06/12/23 19:30 POC Glucose 153 mg/dL (70-110) H 06/12/23 20:49 Calculated Osmolality Cancelled 06/12/23 19:30 Calcium Cancelled 06/12/23 19:30 Total Bilirubin Cancelled 06/12/23 19:30 AST Cancelled 06/12/23 19:30 ALT Cancelled 06/12/23 19:30 Alkaline Phosphatase Cancelled 06/12/23 19:30 Total Protein Cancelled 06/12/23 19:30 Albumin Cancelled 06/12/23 19:30 Globulin Cancelled 06/12/23 19:30 EKG Data EKG 1: I personally reviewed and interpreted this EKG as follows: EKG interpretation date: 06/12/23 EKG interpretation time: 19:20 Interpretation: nsr hr [address] or t wave abnormalities qrs 82 qtc 394 Discharge Plan Discharge Patient Disposition: Home Clinical Impression: Hypertension Condition: Stable Prescriptions: New Norvasc 5 mg tablet 5 mg PO DAILY Qty: 30 0RF No Action doxycycline hyclate 100 mg capsule 100 mg PO BID 10 Days Qty: 20 0RF lisinopril 10 mg tablet 10 mg PO DAILY Qty: 90 2RF Victoza 2-Chad 0.6 mg/0.1 mL (18 mg/3 mL) pen injector See Rx Instructions .ROUTE .COMPLEX Qty: 6 2RF Dose Instruction: inject .6mg SUBCUTANEOUSLY EVERY DAY Rx Instructions: inject .6mg SUBCUTANEOUSLY EVERY DAY metformin 500 mg tablet extended release 24 hr 500 mg PO DAILY Qty: 30 2RF Discharge Orders: Discharge ED (Routine); Ordered 06/12/23 Ordered By: Elie Giordano Referrals: Jacqueline Valenzuela DO [Primary Care Provider] - 1-3 days Discharge Diet: Advance as tolerated Discharge Activity: Resume usual activity Patient Instructions: Hypertension (ED) Coding Level of Care Code ED Weaving Professor for Georgi Hernández
[2023-06-12 19:37] LABS: Basophils # 0.1 10^3/uL (0.0-0.1); Basophils % 0.9 %; Eosinophils # 0.3 10^3/uL (0.0-0.8); Eosinophils % 2.7 %; Hematocrit 44.7 % (37.0-47.0); Hemoglobin 14.7 g/dL (11.5-15.3); Lymphocytes # 3.1 10^3/uL (0.8-4.8); Lymphocytes % 28.1 %; Mean Corpuscular HGB Conc 32.9 g/dL (30.0-36.0); Mean Corpuscular Hemoglobin 28.5 pg (28.0-34.0); Mean Corpuscular Volume 86.8 fl (81-99); Monocytes # 0.6 10^3/uL (0.2-0.9); Monocytes % 5.6 %; Neutrophils # 6.93 10^3/uL (1.8-7.7); Neutrophils % 62.4 %; Nucleated Red Blood Cells % 0 %; Platelet Count 378 10^3/cmm (130-400); Red Blood Count 5.15 10^6/uL (4.1-5.3); Red Cell Distribution Width 11.9 % (12.1-15.1); White Blood Count 11.1 10^3/uL (4.0-10.0)
[2023-06-12] MEDS: hyDRALAzine 20 mg/mL INJ 1 mL 10 MG IM (19:59)
[2023-06-12 20:07] VITALS: BP 154/103; PULSE 100; RESP 18; O2SAT 100
--- NOTE | 2023-06-12 20:07 | PC.NURSE ---
Report received from PASQUALE Marin at 1850.
[2023-06-12 21:01] LABS: Glucose Point of Care 153 mg/dL (70-110)
== END 2023-06-12 21:00 | disposition home or self-care (01) ==
PROVIDERS: Emergency Provider Emergency Medicine; PCP Family Medicine
DX: I10 Essential (primary) hypertension (principal); Z79.84 Long term (current) use of oral hypoglycemic drugs; Z87.891 Personal history of nicotine dependence; E78.5 Hyperlipidemia, unspecified; E11.9 Type 2 diabetes mellitus without complications
CPT/HCPCS: 36416; 82962; 85025; 93005; 96372; 99284; J0360

== ENCOUNTER 2023-06-12 23:28 | Emergency (ER) | payer OTHER, SELFPAY ==
--- NOTE | 2023-06-12 23:34 | ECG_ITS ---
[facility] Test Date: 2023-06-13 Pat Name: Jessica King Department: Room: Gender: Female Process Coach: : 1975 Requested By: Quan Hernández Order Number: [id number] Alonzo MD: Trey Gannon M.D. Measurements Intervals [employer] Rate: 101 P: 62 [place]: 147 QRS: 11 QRSD: 84 T: 30 QT: 344 QTc: 448 Interpretive Statements SINUS TACHYCARDIA POSSIBLE ANTERIOR MYOCARDIAL INFARCTION , PROBABLY OLD [30 ms Q WAVE IN V3/V4, OR R < 0.2 mV IN V4] ABNORMAL RHYTHM ECG Compared to ECG 06/12/2023 19:20:11 Sinus rhythm no longer present Myocardial infarct finding still present Electronically Signed On 06-13-2023 9:24:29 CDT by Trey Gannon M.D. [id number]
[2023-06-12 23:43] VITALS: BP 150/90; PULSE 105; RESP 27; TEMP 36.9; O2SAT 97; BMI 32.9
--- NOTE | 2023-06-12 23:44 | W.ED.CHESTPA ---
HPI - Chest Pain General: Chief Complaint: Chest Pain Stated Complaint: Heart Racing Time Seen by Provider: 06/12/23 23:39 History of Present Illness: 47-year-old female comes in today for complaints of anxiety and racing heart. Patient had been seen earlier this evening for high blood pressure and was given medication for her blood pressure but upon arriving home felt really anxious and had palpitations. Patient appears in no pain at rest. Patient appears nontoxic. Patient has a history of diabetes mellitus type 2 and high blood pressure. Associated symptoms: Reports palpitations; Deny dyspnea or vomiting Review of Systems General: Reports: 10 or more systems reviewed and unremarkable except in HPI and below Card: Reports: chest pain and palpitations Resp: Denies: dyspnea GI: Denies: vomiting : Denies: difficulty voiding PFSH ED PFSH: Medical History Dyslipidemia Essential hypertension No pertinent past medical history neghx:thyroid, dvt/pe PCP: Dr. Valenzuela Type 2 diabetes mellitus, without long-term current use of insulin Surgical History H/O section (10/05/96) DX: NR FHT. Performed by Dr. Faustin at [facility] [place] in [place], [place]. H/O section (03/05/99) Repeat section with tubal ligation. Performed by Dr. Faustin at [facility] [place] in [place], [place]. H/O: hysterectomy (09/27/14) MAYITO RSO. Performed by Dr. Petersen at [facility] [place] in [place], [place]. S/P laparoscopy (01/26/13) Laparoscopic lysis of adhesions. Performed by Dr. Petersen at [facility] [place] in [place], [place]. Findings at time of surgery include omental adhesions to the anterior abdominal wall, adhesions of bladder to the uterus, and adhesions of the fallopian tube to the pelvic sidewall. S/P tubal ligation (03/05/99) Performed at time of section. Performed by Dr. Faustin at [facility] [place] in [place], [place]. Family History Father Hyperlipidemia CAD (coronary artery disease) Hypertension Diabetes Mother CAD (coronary artery disease) Grandfather CAD (coronary artery disease) Maternal Grandmother CAD (coronary artery disease) Paternal Diabetes Paternal Grandfather CAD (coronary artery disease) Paternal Grandmother CAD (coronary artery disease) Paternal Stroke Maternal Family/Other Cervical cancer paternal aunt Denies family history of Ovarian cancer Heart disease Breast cancer Bleeding disorder Uterine cancer Thyroid disease Social History Smoking and tobacco status: former smoker Quit status (tobacco): has quit using tobacco Year quit tobacco: 2019 Former quit date comment: smoked for 8 months Alcohol intake: current Alcohol intake frequency: holidays/special occasions only Substance/Drug Use: never Physical Exam Const: COMMON NORMALS: alert HENMT: COMMON NORMALS: normocephalic HEAD & SCALP: normocephalic Neck/C-Spine: COMMON NORMALS: full ROM Chest: COMMONS NORMALS: normal inspection of the chest Resp: COMMON NORMALS: normal respiratory effort and clear to auscultation bilaterally AUSCULTATION: clear to auscultation bilaterally Cardio: COMMON NORMALS: regular rate and regular rhythm RATE: regular rate RHYTHM: regular rhythm GI: COMMON NORMALS: Soft to palpation PALPATION: Yes Soft to palpation Extremity: COMMON NORMALS: no pedal edema Neuro: SENSORIUM/ORIENTATION: Yes alert Skin: COMMON NORMALS: turgor normal GENERAL SKIN EXAM: turgor normal Course Vital Signs: Vital signs: Vital Signs Temperature 98.4 F 06/12/23 23:43 Pulse Rate 106 H 06/13/23 00:00 Respiratory Rate 27 H 06/12/23 23:43 Blood Pressure 131/93 06/13/23 00:00 Pulse Oximetry 96 06/13/23 00:00 Oxygen Delivery Me thod Room Air 06/13/23 00:00 MDM - Chest Pain Medical Decision Making 47-year-old female comes in today for complaints of racing heart and chest discomfort. On exam patient does have some mild tachycardia of 101. Respirations are even lungs are clear to auscultation. No edema is noted in the extremities. Vital signs are normal except for some elevation in pulse, respiration, and blood pressure of 150/90. Differential diagnosis includes panic attack, sinus tachycardia, ACS. EKG was remarkable for sinus tachycardia but otherwise no signs of acute ischemia. Patient was given medication for anxiety and had resolution of symptoms. Believe the patient probably had a panic attack. Reassured patient discharged home after 1 mg of lorazepam. Patient reported understanding of care plan and need for follow-up or return to the ER. EKG Data EKG 1: EKG interpretation date: 06/13/23 EKG interpretation time: 00:30 Prior EKG tracings: not available for review Interpretation: EKG shows a sinus tachycardia with a regular rhythm at [address] elevation or ectopy is otherwise noted. No prior exam was available for review. Computer generated interpretation: Sinus tachycardia, possible anterior myocardial infarction, probably old. Abnormal rhythm EKG, unconfirmed report. Discharge Plan Discharge Patient Disposition: Home Clinical Impression: Anxiety about health Chest pain Qualifiers: Chest pain type: unspecified Qualified Code(s): R07.9 - Chest pain, unspecified Condition: Stable Prescriptions: No Action doxycycline hyclate 100 mg capsule 100 mg PO BID 10 Days Qty: 20 0RF lisinopril 10 mg tablet 10 mg PO DAILY Qty: 90 2RF Victoza 2-Chad 0.6 mg/0.1 mL (18 mg/3 mL) pen injector See Rx Instructions .ROUTE .COMPLEX Qty: 6 2RF Dose Instruction: inject .6mg SUBCUTANEOUSLY EVERY DAY Rx Instructions: inject .6mg SUBCUTANEOUSLY EVERY DAY metformin 500 mg tablet extended release 24 hr 500 mg PO DAILY Qty: 30 2RF Norvasc 5 mg tablet 5 mg PO DAILY Qty: 30 0RF Discharge Orders: Discharge ED (Routine); Ordered 06/13/23 Ordered By: Quan Lynch Referrals: Jacqueline Valenzuela DO [Primary Care Provider] - Discharge Diet: Usual diet Discharge Activity: Increase activity as tolerated Patient Instructions: Anxiety (ED) Activity Restrictions/Additional Instructions: Home and rest. Drink plenty of fluids. Continue with routine care as directed. Follow-up with primary care for further instructions. Return to ED for new concerns. Coding Level of Care Code ED Direct Chill Caster for Georgi Hernández
[2023-06-13] VITALS: BP 131/93; PULSE 106; O2SAT 96
[2023-06-13] MEDS: LORazepam 1 mg Tablet PO (00:41)
[2023-06-13 01:02] VITALS: BP 134/70; PULSE 98; O2SAT 96
== END 2023-06-13 01:03 | disposition home or self-care (01) ==
PROVIDERS: Emergency Provider Nurse Practitioner Family; PCP Family Medicine
DX: R07.9 Chest pain, unspecified (principal); F41.9 Anxiety disorder, unspecified; Z87.891 Personal history of nicotine dependence; E78.5 Hyperlipidemia, unspecified; I10 Essential (primary) hypertension; E11.9 Type 2 diabetes mellitus without complications
CPT/HCPCS: 93005; 99283

== ENCOUNTER → 2023-08-15 09:19 | Outpatient (BNVA) | payer OTHER, SELFPAY | PROVIDERS: PCP Family Medicine; Visit Provider Family Medicine | DX: I10 Essential (primary) hypertension (principal); E11.9 Type 2 diabetes mellitus without complications; E78.5 Hyperlipidemia, unspecified | CPT/HCPCS: 80053; 80061; 82043; 83036; 85025 ==

== ENCOUNTER → 2023-12-04 09:20 | Outpatient (BNVA) | payer OTHER, SELFPAY | PROVIDERS: PCP Family Medicine; Visit Provider Family Medicine | DX: E78.5 Hyperlipidemia, unspecified (principal) | CPT/HCPCS: 80053; 80061; 83036 ==

== ENCOUNTER 2023-12-22 09:30 | Outpatient (CLI) | payer OTHER, SELFPAY ==
--- NOTE | 2023-12-22 09:33 | MM_ITS ---
WS: [id number] BILATERAL SCREENING DIGITAL TOMOSYNTHESIS MAMMOGRAM WITH CAD HISTORY: screening COMPARISON: 02/16/2021 and 03/05/2021 Bilateral CC and MLO views with tomosynthesis and synthetic mammography submitted. Computer aided det ection analyzed. Breast composition: There are scattered areas of fibroglandular density. No suspicious masses, microc alcifications or architectural distortion. Biopsy clip 6:00 LEFT breast. No surrounding mass identifi ed. No suspicious calcifications within either breast. IMPRESSION: MM/[place] [id number] BI-RADS: 2-Benign FOLLOW UP: 1 Year Follow-up
== END 2023-12-22 09:31 | disposition home or self-care (01) ==
LOC: RAD 09:31
PROVIDERS: PCP Family Medicine; Visit Provider Family Medicine
DX: Z12.31 Encounter for screening mammogram for malignant neoplasm of breast (principal); R92.323 Mammographic fibroglandular density, bilateral breasts
CPT/HCPCS: 77063; 77067

== ENCOUNTER → 2024-02-05 14:53 | Outpatient (BNVA) | payer OTHER, SELFPAY | PROVIDERS: PCP Family Medicine; Visit Provider Family Medicine | DX: R10.11 Right upper quadrant pain (principal); Z13.6 Encounter for screening for cardiovascular disorders | CPT/HCPCS: 80053; 83690 ==

== ENCOUNTER 2024-02-12 06:26 | Outpatient (CLI) | payer OTHER, SELFPAY ==
--- NOTE | 2024-02-12 06:45 | US_ITS ---
WS: [id number] RIGHT UPPER QUADRANT ULTRASOUND HISTORY: ruq pain COMPARISON: None available. Liver: 12.7 cm in length. Normal size liver and echogenicity. No bile duct dilatation or mass. Portal Vein: Normal hepatopetal flow with monophasic waveform. Gallbladder: Normally distended gallbladder with no stones or wall thickening. CBD: 0.3 cm Pancreas: Obscured by bowel gas. Right kidney: 9.3 cm in length. Normal size and echogenicity. No hydronephrosis or mass. Aorta and IVC: Not imaged. No ascites. IMPRESSION: Normal gallbladder. Nonvisualization of the pancreas.
== END 2024-02-12 06:27 | disposition home or self-care (01) ==
LOC: RAD 06:26
PROVIDERS: PCP Family Medicine; Visit Provider Family Medicine
DX: R10.11 Right upper quadrant pain (principal)
CPT/HCPCS: 76705

== ENCOUNTER 2024-02-27 09:34 | Outpatient (CLI) | payer OTHER, SELFPAY ==
--- NOTE | 2024-02-27 10:00 | NM_ITS ---
WS: [id number] NUCLEAR MEDICINE HIDA SCAN WITH GALLBLADDER EJECTION FRACTION HISTORY: RUQ pain COMPARISON: Gallbladder ultrasound 02/12/2024 TECHNIQUE: The patient was intravenously injected with 7.4 mCi of TC99m Mebrofenin. Immediate imaging over the right upper quadrant was followed by 5 minute image and additional images for a total of 60 minutes. Normal uptake of radiotracer throughout the liver. Activity identified in the gallbladder at 15 minutes and well distended by 60 minutes. Activity in the proximal small bowel was seen by 60 minutes. Good washout of the radiotracer from the liver by 60 minutes. The patient then drank 8 ounces of Ensure Plus. Ejection fraction at 60 minutes was 56%. Normal GB ej ection fraction is 35-75%. Post fatty meal symptoms: None. IMPRESSION: 1. Normal HIDA scan. 2. Normal gallbladder ejection fraction.
== END 2024-02-27 09:35 | disposition home or self-care (01) ==
PROVIDERS: PCP Family Medicine; Visit Provider Family Medicine
DX: R10.11 Right upper quadrant pain (principal)
CPT/HCPCS: 78227; A9537

== ENCOUNTER → 2024-03-11 08:52 | Outpatient (BNVA) | payer SELFPAY | PROVIDERS: PCP Family Medicine; Visit Provider Family Medicine | DX: E11.9 Type 2 diabetes mellitus without complications (principal); R00.2 Palpitations | CPT/HCPCS: 80053; 83036; 84443; 87070; 87205 ==

== ENCOUNTER 2024-03-19 16:41 | Emergency (ER) | payer OTHER, SELFPAY ==
--- NOTE | 2024-03-19 16:48 | ECG_ITS ---
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 Measurements Intervals [place] Rate: 95 P: 65 [place]: 134 QRS: 14 QRSD: 78 T: 41 QT: 339 QTc: 427 Interpretive Statements SINUS RHYTHM LOW QRS VOLTAGE IN PRECORDIAL LEADS [QRS DEFLECTION < 1.0 mV IN CHEST LEADS] Nonspecific ST changes Borderline EKG Electronically Signed On 03-20-2024 12:37:16 CDT by Carrie Arriaga M.D. [id number] f
[2024-03-19 16:53] VITALS: BP 146/88; PULSE 102; RESP 16; TEMP 36.4; O2SAT 100; BMI 28.8
[2024-03-19 17:51] LABS: Basophils # 0.1 10^3/uL (0.0-0.1); Eosinophils # 0.2 10^3/uL (0.0-0.8); Eosinophils % 2.4 %; Hematocrit 45.9 % (36-47); Lymphocytes # 2.2 10^3/uL (0.8-4.8); Lymphocytes % 23.6 %; Mean Corpuscular HGB Conc 32.7 g/dL (30-55); Mean Corpuscular Hemoglobin 28.6 pg (27-33); Mean Corpuscular Volume 87.6 fl (85-98); Monocytes # 0.5 10^3/uL (0.2-0.9); Monocytes % 5.4 %; Neutrophils # 6.35 10^3/uL (1.8-7.7); Neutrophils % 67.4 %; Nucleated Red Blood Cells % 0 %; Platelet Count 379 10^3/cmm (157-399); Red Blood Count 5.24 10^6/uL (3.85-5.65); Red Cell Distribution Width 11.9 % (12.1-15.1); White Blood Count 9.42 10^3/uL (3.29-11.43)
--- NOTE | 2024-03-19 17:59 | W.ED.ARRPALP ---
HPI - Arrhythmia/Palpitations General: Chief Complaint: Arrhythmia/Palpitations Stated Complaint: dizzy, elevated hr Time Seen by Provider: 03/19/24 17:55 History of Present Illness: 48-year-old female with a history of hypertension and diabetes who presents to the emergency room with palpitations and dizziness. She has been having issues with this for some time. She is supposed to get a Holter monitor soon. Symptoms have now resolved. No cough. No altered mental status. No abdominal pain. She says her sugars were fine. She says sometimes she thinks that is what is causing her issues. Review of Systems Narrative: Constitutional symptoms: Negative except as documented in HPI. Skin symptoms: Negative except as documented in HPI. Eye symptoms: Negative except as documented in HPI. ENMT symptoms: Negative except as documented in HPI. Respiratory symptoms: Negative except as documented in HPI. Cardiovascular symptoms: Negative except as documented in HPI. Gastrointestinal symptoms: Negative except as documented in HPI. Genitourinary symptoms: Negative except as documented in HPI. Musculoskeletal symptoms: Negative except as documented in HPI. Neurologic symptoms: Negative except as documented in HPI. Psychiatric symptoms: Negative except as documented in HPI. Endocrine symptoms: Negative except as documented in HPI. PFSH ED PFSH: Medical History No pertinent past medical history neghx:thyroid, dvt/pe PCP: Dr. Valenzuela Dyslipidemia Type 2 diabetes mellitus, without long-term current use of insulin Essential hypertension Surgical History S/P tubal ligation (03/05/99) Performed at time of section. Performed by Dr. Faustin at [facility] [place] in [place], [place]. H/O section (03/05/99) Repeat section with tubal ligation. Performed by Dr. Faustin at [facility] [place] in [place], [place]. S/P laparoscopy (01/26/13) Laparoscopic lysis of adhesions. Performed by Dr. Petersen at [facility] [place] in [place], [place]. Findings at time of surgery include omental adhesions to the anterior abdominal wall, adhesions of bladder to the uterus, and adhesions of the fallopian tube to the pelvic sidewall. H/O section (12/03/96) DX: NR FHT. Performed by Dr. Faustin at [facility] [place] in [place], [place]. H/O: hysterectomy (09/27/14) CARRIE EDMOND. Performed by Dr. Petersen at [facility] [place] in [place], [place]. Family History Father Hyperlipidemia CAD (coronary artery disease) Hypertension Diabetes Mother CAD (coronary artery disease) Grandfather CAD (coronary artery disease) Maternal Grandmother CAD (coronary artery disease) Paternal Diabetes Paternal Grandfather CAD (coronary artery disease) Paternal Grandmother CAD (coronary artery disease) Paternal Stroke Maternal Family/Other Cervical cancer paternal aunt Denies family history of Ovarian cancer Heart disease Breast cancer Bleeding disorder Uterine cancer Thyroid disease Social History Smoking and tobacco/nicotine status: never used tobacco/nicotine Quit status (tobacco/nicotine): has quit using Year quit tobacco: 2019 Former quit date comment: smoked for 8 months Alcohol intake: current Alcohol intake frequency: holidays/special occasions only Substance/Drug Use: never Physical Exam Narrative: EXAM NARRATIVE: General: Alert, no acute distress. Skin: Warm, dry. Head: Normocephalic, atraumatic. Neck: Supple, trachea midline. Eye: Extraocular movements are intact. Ears, nose, mouth and throat: mucosa moist. Cardiovascular: Regular, Normal peripheral perfusion. Respiratory: Lungs are clear to auscultation, respirations are non-labored, breath sounds are equal, Symmetrical chest wall expansion. Gastrointestinal: Soft, Nontender, Non distended, Normal bowel sounds. Musculoskeletal: Normal ROM, no deformity. Neurological: Alert and oriented, No focal neurological deficit observed. Psychiatric: Cooperative, appropriate mood & affect. Course Vital Signs: Vital signs: Vital Signs Temperature 97.5 F L 03/19/24 16:53 Pulse Rate 86 03/19/24 18:22 Respiratory Rate 16 03/19/24 16:53 Blood Pressure 117/78 03/19/24 18:22 Pulse Oximetry 100 03/19/24 18:22 Oxygen Delivery Me thod Room Air 03/19/24 18:22 MDM - Arrhythmia/Palpitations Medical Decision Making Medical decision making: Differential diagnosis including but not limited to and based on the above HPI, review of systems and physical exam: for patient with palpitations: atrial fibrillation with rapid ventricular response. ventricular tachycardia. sinus tachycardia. PVCs. also concern for underlying issues causing tachycardia. Infection, electrolyte abnormalities and thyroid issues Orders placed to evaluate differential diagnosis based on the above differential, HPI and physical exam Lab Review: Laboratory results were reviewed and interpreted by myself the emergency room physician. Lab work is unremarkable. White count is 9. Hemoglobin is 15. BUN and creatinine are 15 and 0.7. Potassium is normal. Glucose is 123 I reviewed the patient's medical record. Reexamination: Patient remained stable. No dysrhythmias while here. No increased work of breathing. No altered mental status. Assessment and plan: Palpitations - Discharged home - Discussed plan with patient. Answered any questions. - Evaluation and treatment of this problem were appropriate in the emergency setting. Lab Data 03/19/24 17:43 03/19/24 17:43 Laboratory Results WBC 9.42 10^3/uL (3.29-11.43) 03/19/24 17:43 RBC 5.24 10^6/uL (3.85-5.65) 03/19/24 17:43 Hgb 15.00 g/dL (11.27-16.99) 03/19/24 17:43 Hct 45.9 % (36-47) 03/19/24 17:43 MCV 87.6 fl (85-98) 03/19/24 17:43 MCH 28.6 pg (27-33) 03/19/24 17:43 MCHC 32.7 g/dL (30-55) 03/19/24 17:43 RDW 11.9 % (12.1-15.1) L 03/19/24 17:43 Plt Count 379 10^3/cmm (157-399) 03/19/24 17:43 MPV 11.0 fL (7.4-10.4) H 03/19/24 17:43 Neut % (Auto) 67.4 % 03/19/24 17:43 Lymph % (Auto) 23.6 % 03/19/24 17:43 Gilliam % (Auto) 5.4 % 03/19/24 17:43 Eos % (Auto) 2.4 % 03/19/24 17:43 Baso % (Auto) 1.0 % 03/19/24 17:43 Neut # (Auto) 6.35 10^3/uL (1.8-7.7) 03/19/24 17:43 Lymph # (Auto) 2.2 10^3/uL (0.8-4.8) 03/19/24 17:43 Gilliam # (Auto) 0.5 10^3/uL (0.2-0.9) 03/19/24 17:43 Eos # (Auto) 0.2 10^3/uL (0.0-0.8) 03/19/24 17:43 Baso # (Auto) 0.1 10^3/uL (0.0-0.1) 03/19/24 17:43 Nucleated RBC % (auto) 0 % 03/19/24 17:43 Nucleated RBCs # 0.0 /100WBC 03/19/24 17:43 Sodium 138 mmol/L (136-145) 03/19/24 17:43 Potassium 4.0 mmol/L (3.5-5.1) 03/19/24 17:43 Chloride 101 mmol/L (98-107) 03/19/24 17:43 Carbon Dioxide 24 mmol/L (22-29) 03/19/24 17:43 Anion Gap 17.0 (5-19) 03/19/24 17:43 BUN 15 mg/dL (6-20) 03/19/24 17:43 Creatinine 0.7 mg/dL (0.5-0.9) 03/19/24 17:43 GFR Calculation 90.1 mL/min (90-130) 03/19/24 17:43 Glucose 123 mg/dL (65-115) H 03/19/24 17:43 Calculated Osmolality 288 mOsm/kg (285-295) 03/19/24 17:43 Calcium 10.1 mg/dL (8.5-10.5) 03/19/24 17:43 Total Bilirubin 0.3 mg/dL (0.15-1.2) 03/19/24 17:43 AST 16 U/L (0-32) 03/19/24 17:43 ALT 22 U/L (0-33) 03/19/24 17:43 Alkaline Phosphatase 89 U/L (35-105) 03/19/24 17:43 Troponin T Baseline < 6 ng/L (0-10) 03/19/24 17:43 Total Protein 9.4 g/dL (6.6-8.7) H 03/19/24 17:43 Albumin 5.3 g/dL (3.5-5.2) H 03/19/24 17:43 Globulin 4.1 g/dL (1.3-4.6) 03/19/24 17:43 TSH 0.83 uIU/mL (0.27-4.20) 03/19/24 17:43 No radiology studies performed this visit Discharge Plan Discharge Patient Disposition: Home Clinical Impression: Palpitations Condition: Stable Prescriptions: No Action estradiol 0.01 % (0.1 mg/gram) cream 1 g vaginal DAILY Qty: 42.5 1RF Rx Instructions: Nightly for two weeks, then three times a week Norvasc 5 mg tablet 5 mg PO DAILY Qty: 90 1RF lisinopril 10 mg tablet See Rx Instructions .ROUTE .COMPLEX Qty: 90 1RF Dose Instruction: Take 1 tablet by mouth once daily Rx Instructions: Take 1 tablet by mouth once daily atorvastatin 20 mg tablet See Rx Instructions .ROUTE .COMPLEX Qty: 90 1RF Dose Instruction: Take 1 tablet by mouth once daily Rx Instructions: Take 1 tablet by mouth once daily metformin 750 mg tablet extended release 24 hr 750 mg PO BID Qty: 90 0RF Discharge Orders: Discharge ED (Routine); Ordered 03/19/24 Ordered By: Daphnie Grimes Referrals: Jacqueline Valenzuela DO [Primary Care Provider] - 4-7 days Discharge Diet: Usual diet Discharge Activity: Increase activity as tolerated Patient Instructions: Heart Palpitations (ED) Activity Restrictions/Additional Instructions: Thank you for choosing [facility] for your healthcare needs today. Please realize this is an emergency room and that we are providing you with a medical screening exam and this may not be complete and all inclusive of all the testing and or work up that you may need to determine your ailment or severity of your illness. You have been screened and evaluated and felt safe for discharge. Health conditions do change or evolve sometimes and as such it is important that you follow up with your Primary Doctor to be re checked, 3-5 days is a general good time frame for follow up. You are always welcome to return to the ED for re assessment if your symptoms are worsening or you have new concerns Coding Level of Care Code ED Sand Operator for Georgi Hernández
[2024-03-19 18:18] LABS: Alanine Aminotransferase 22 U/L (0-33); Albumin Level 5.3 g/dL (3.5-5.2); Alkaline Phosphatase 89 U/L (35-105); Aspartate Amino Transferase 16 U/L (0-32); Blood Urea Nitrogen 15 mg/dL (6-20); Calcium 10.1 mg/dL (8.5-10.5); Carbon Dioxide 24 mmol/L (22-29); Chloride 101 mmol/L (98-107); Creatinine Clr Calc Pharmacy 96.7627; Globulin 4.1 g/dL (1.3-4.6); Glomerular Filtration Rate 90.1 mL/min (90-130); Glucose 123 mg/dL (65-115); Osmolality Calculated 288 mOsm/kg (285-295); Sodium 138 mmol/L (136-145); Thyroid Stimulating Hormone 0.83 uIU/mL (0.27-4.20); Total Bilirubin 0.3 mg/dL (0.15-1.2); Total Protein 9.4 g/dL (6.6-8.7)
[2024-03-19 18:22] VITALS: BP 117/78; PULSE 86; O2SAT 100
[2024-03-19 19:08] LABS: Troponin(5th) Baseline < 6 ng/L (0-10)
[2024-03-19 19:20] VITALS: BP 120/71; PULSE 88; RESP 16; O2SAT 100
== END 2024-03-19 19:21 | disposition home or self-care (01) ==
PROVIDERS: Emergency Medicine; Emergency Provider Emergency Medicine; PCP Family Medicine
DX: R00.2 Palpitations (principal); I10 Essential (primary) hypertension; E11.9 Type 2 diabetes mellitus without complications; Z79.84 Long term (current) use of oral hypoglycemic drugs; Z79.899 Other long term (current) drug therapy
CPT/HCPCS: 36415; 80053; 84443; 84484; 85025; 93005; 99284

== ENCOUNTER 2024-03-31 14:32 | Emergency (ER) | payer OTHER, SELFPAY ==
--- NOTE | 2024-03-31 14:35 | ECG_ITS ---
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 Measurements Intervals [place] Rate: 105 P: 68 [place]: 134 QRS: 28 QRSD: 81 T: 49 QT: 321 QTc: 425 Interpretive Statements SINUS TACHYCARDIA POSSIBLE LEFT ATRIAL ENLARGEMENT [-0.1mV P-WAVE IN V1/V2] LOW QRS VOLTAGE IN PRECORDIAL LEADS [QRS DEFLECTION < 1.0 mV IN CHEST LEADS] ABNORMAL RHYTHM ECG Compared to ECG 03/19/2024 16:48:50 Sinus rhythm no longer present ST (T wave) deviation no longer present Electronically Signed On 03-31-2024 16:44:47 CDT by Trey Gannon M.D. [id number]
--- NOTE | 2024-03-31 14:35 | XR_ITS ---
WS: [id number] Exam: XR chest 1V portable [id number] Date/Time of Exam: 03/31/2024 2:38 PM Reason For Exam: cp Findings: The lungs are clear and fully expanded. Costophrenic angles are sharp. No infiltrates. Bronchovascula r relief appears normal. Cardiac silhouette is unremarkable. Bony elements are intact. XR/XR chest 1V portable [id number] IMPRESSION: Unremarkable chest radiograph.
[2024-03-31 14:36] VITALS: BP 129/83; PULSE 106; RESP 16; TEMP 36.6; O2SAT 100
[2024-03-31 16:06] LABS: Basophils # 0.1 10^3/uL (0.0-0.1); Basophils % 0.8 %; Eosinophils # 0.1 10^3/uL (0.0-0.8); Eosinophils % 1.3 %; Hematocrit 40.4 % (36-47); Lymphocytes # 2.4 10^3/uL (0.8-4.8); Lymphocytes % 23.8 %; Mean Corpuscular HGB Conc 33.4 g/dL (30-55); Mean Corpuscular Hemoglobin 28.8 pg (27-33); Mean Corpuscular Volume 86.3 fl (85-98); Monocytes # 0.6 10^3/uL (0.2-0.9); Monocytes % 6.2 %; Neutrophils % 67.7 %; Nucleated Red Blood Cells % 0 %; Platelet Count 408 10^3/cmm (157-399); Red Blood Count 4.68 10^6/uL (3.85-5.65); Red Cell Distribution Width 11.9 % (12.1-15.1)
--- NOTE | 2024-03-31 16:28 | ED_ITS ---
HPI - Chest Pain 2 General: Chief Complaint: Chest Pain Stated Complaint: katelyn pain Time Seen by Provider: 03/31/24 16:27 Source: patient Mode of arrival: ambulatory Limitations: no limitations History of Present Illness: Patient is a 48-year-old female presents to ED today with complaint of palpitations and chest pain. Patient states she has a longstanding history of palpitations. She has been seen here in our emergency department multiple times for this complaint. Patient states she actually has an appointment with her PCP tomorrow for a follow-up appointment following her last ED visit. She states she is supposed to be getting a Holter monitor but has yet to hear anything further on this. Patient states yesterday she was having palpitations and also developed some chest pain with radiation into her left arm. She felt like her left arm felt numb. Patient feels like some of her symptoms could be anxiety related as they seem to improve if she can calm herself down. She has had intermittent episodes of tachycardia. These were witnessed here when patient becomes emotional/tearful. She states she has never had PVCs or arrhythmias found on her EKGs or on telemetry during her hospital visits. MD complaint: chest pain and other (palpitations ) Onset (ago): day(s) Timing of current episode: episodic Prior episodes: Yes Onset: during rest Pain location: substernal and left chest Pain radiation: left arm Severity: moderate Quality: aching Relieving factors: rest (trying to calm herself down ) Exacerbating factors: nothing Associated symptoms: Reports palpitations; Deny abdominal pain, dyspnea, fever(s), nausea, syncope or vomiting Treatment prior to arrival: none Risk Factors: Coronary artery disease risk factors: diabetes and hypertension Thoracic aortic dissection risk factors: none Related Data: On Oral Contraceptives: No Review of Systems 2 Const: Denies: fever(s) or chills Eyes: Denies: change in vision or blurry vision Card: Reports: chest pain, palpitations and irregular heart rhythm; Denies: edema, swelling of feet/ankles, lightheadedness, syncope, pre-syncope, dyspnea on exertion, orthopnea, leg pain with exertion or acrocyanosis Resp: Denies: dyspnea, productive cough or pain on inspiration GI: Denies: abdominal pain, nausea, vomiting, heartburn or diarrhea : Denies: flank pain, difficulty voiding, dysuria, urinary frequency, urinary urgency or urinary hesitancy Musc: Denies: neck pain, back pain, extremity pain, extremity swelling or joint pain Skin/Breast: Denies: rash Neuro: Reports: sensory changes; Denies: headache(s), numbness in extremities, weakness in extremities or dizziness PFSH ED 2 PFSH: Medical History No pertinent past medical history neghx:thyroid, dvt/pe PCP: Dr. Valenzuela Dyslipidemia Type 2 diabetes mellitus, without long-term current use of insulin Essential hypertension Surgical History S/P tubal ligation (03/05/99) Performed at time of section. Performed by Dr. Faustin at [facility] in [place], [place]. H/O section (03/05/99) Repeat section with tubal ligation. Performed by Dr. Faustin at [facility] in [place], [place]. S/P laparoscopy (01/26/13) Laparoscopic lysis of adhesions. Performed by Dr. Petersen at [facility] in [place], [place]. Findings at time of surgery include omental adhesions to the anterior abdominal wall, adhesions of bladder to the uterus, and adhesions of the fallopian tube to the pelvic sidewall. H/O section (10/05/96) DX: NR FHT. Performed by Dr. Faustin at [facility] in [place], [place]. H/O: hysterectomy (09/27/14) CARRIE EDMOND. Performed by Dr. Petersen at [facility] in [place], [place]. Family History Father Hyperlipidemia CAD (coronary artery disease) Hypertension Diabetes Mother CAD (coronary artery disease) Grandfather CAD (coronary artery disease) Maternal Grandmother CAD (coronary artery disease) Paternal Diabetes Paternal Grandfather CAD (coronary artery disease) Paternal Grandmother CAD (coronary artery disease) Paternal Stroke Maternal Family/Other Cervical cancer paternal aunt Denies family history of Ovarian cancer Heart disease Breast cancer Bleeding disorder Uterine cancer Thyroid disease Social History Smoking and tobacco/nicotine status: never used tobacco/nicotine Quit status (tobacco/nicotine): has quit using Year quit tobacco: 2019 Former quit date comment: smoked for 8 months Alcohol intake: current Alcohol intake frequency: holidays/special occasions only Substance/Drug Use: never Physical Exam 2 Const: COMMON NORMALS: no acute distress, average body habitus, patient oriented x3, no limitations, healthy appearing, alert and well nourished G ENERAL APPEARANCE: cooperative and anxious (at times during history taking) O RIENTATION/CONSCIOUSNESS: Yes awake, Yes oriented to person, Yes oriented to place and Yes oriented to time HENMT: COMMON NORMALS: normocephalic and atraumatic HEAD & SCALP: normal to inspection, normocephalic and atraumatic Neck/C-Spine: COMMON NORMALS: full ROM, no lymphadenopathy, supple, no meningeal signs, no JVD and No carotid bruits Chest: COMMONS NORMALS: normal inspection of the chest and normal palpation of entire chest wall Resp: COMMON NORMALS: normal respiratory effort and clear to auscultation bilaterally AUSCULTATION: clear to auscultation bilaterally Cardio: COMMON NORMALS: no JVD, regular rate and regular rhythm RATE: r egular rate RHYTHM: regular rhythm GI: COMMON NORMALS: non-tender INSPECTION: Yes normal to inspection Extremity: COMMON NORMALS: normal to inspection, no clubbing, cyanosis or edema, no calf tenderness and no pedal edema GENERAL: Yes normal exam except as noted Neuro: MARIA DEL ROSARIO COMA SCALE: document GCS findings [place] coma scale eye opening: Spontaneous Maria Del Rosario coma scale verbal response: Orientated Maria Del Rosario coma scale motor response: Obey commands Maria Del Rosario coma scale total score: 15 COMMON NORMALS: patient oriented x3 SENSORIUM/ORIENTATION: Yes alert, Yes oriented to person, Yes oriented to place and Yes oriented to time MENINGEAL SIGNS: Y es no meningeal signs Skin: COMMON NORMALS: no rashes or lesions noted GENERAL SKIN EXAM: no rashes or lesions noted Course 2 Vital Signs: Vital signs: Vital Signs Temperature 97.9 F 03/31/24 14:36 Pulse Rate 93 03/31/24 17:00 Respiratory Rate 14 03/31/24 17:00 Blood Pressure 126/82 03/31/24 17:00 Pulse Oximetry 99 03/31/24 17:00 Oxygen Delivery Me thod Room Air 03/31/24 17:00 MDM - Chest Pain Medical Decision Making Patient here for intermittent episodes of palpitations that are chronic as well as some chest pains that she began having yesterday evening. These have improved upon arrival and she is currently rating discomfort is minimal. Her vital signs are stable here. Blood work overall is unremarkable. Her baseline troponin is normal. EKG is unremarkable. She has an appointment with her PCP tomorrow. I feel she is stable for discharge today with follow-up then. Plan will be to continue with Holter monitoring. Return to ED precautions given. Medical Records I reviewed the patient's medical records. Lab Data I reviewed the patient's lab results. 03/31/24 15:51 03/31/24 15:51 Radiology Impressions Chest X-Ray 03/31/24 14:35 IMPRESSION: Unremarkable chest radiograph. Laboratory Results WBC 9.90 10^3/uL (3.29-11.43) 03/31/24 15:51 RBC 4.68 10^6/uL (3.85-5.65) 03/31/24 15:51 Hgb 13.50 g/dL (11.27-16.99) 03/31/24 15:51 Hct 40.4 % (36-47) 03/31/24 15:51 MCV 86.3 fl (85-98) 03/31/24 15:51 MCH 28.8 pg (27-33) 03/31/24 15:51 MCHC 33.4 g/dL (30-55) 03/31/24 15:51 RDW 11.9 % (12.1-15.1) L 03/31/24 15:51 Plt Count 408 10^3/cmm (157-399) H 03/31/24 15:51 MPV 11.0 fL (7.4-10.4) H 03/31/24 15:51 Neut % (Auto) 67.7 % 03/31/24 15:51 Lymph % (Auto) 23.8 % 03/31/24 15:51 Edgar % (Auto) 6.2 % 03/31/24 15:51 Eos % (Auto) 1.3 % 03/31/24 15:51 Baso % (Auto) 0.8 % 03/31/24 15:51 Neut # (Auto) 6.70 10^3/uL (1.8-7.7) 03/31/24 15:51 Lymph # (Auto) 2.4 10^3/uL (0.8-4.8) 03/31/24 15:51 Edgar # (Auto) 0.6 10^3/uL (0.2-0.9) 03/31/24 15:51 Eos # (Auto) 0.1 10^3/uL (0.0-0.8) 03/31/24 15:51 Baso # (Auto) 0.1 10^3/uL (0.0-0.1) 03/31/24 15:51 Nucleated RBC % (auto) 0 % 03/31/24 15:51 Nucleated RBCs # 0.0 /100WBC 03/31/24 15:51 Sodium 141 mmol/L (136-145) 03/31/24 15:51 Potassium 4.1 mmol/L (3.5-5.1) 03/31/24 15:51 Chloride 102 mmol/L (98-107) 03/31/24 15:51 Carbon Dioxide 26 mmol/L (22-29) 03/31/24 15:51 Anion Gap 17.1 (5-19) 03/31/24 15:51 BUN 11 mg/dL (6-20) 03/31/24 15:51 Creatinine 0.7 mg/dL (0.5-0.9) 03/31/24 15:51 GFR Calculation 90.1 mL/min (90-130) 03/31/24 15:51 Glucose 111 mg/dL (65-115) 03/31/24 15:51 Calculated Osmolality 292 mOsm/kg (285-295) 03/31/24 15:51 Calcium 10.4 mg/dL (8.5-10.5) 03/31/24 15:51 Total Bilirubin 0.5 mg/dL (0.15-1.2) 03/31/24 15:51 AST 17 U/L (0-32) 03/31/24 15:51 ALT 22 U/L (0-33) 03/31/24 15:51 Alkaline Phosphatase 78 U/L (35-105) 03/31/24 15:51 Troponin T Baseline 8 ng/L (0-10) 03/31/24 15:51 Total Protein 8.4 g/dL (6.6-8.7) 03/31/24 15:51 Albumin 4.9 g/dL (3.5-5.2) 03/31/24 15:51 Globulin 3.5 g/dL (1.3-4.6) 03/31/24 15:51 Lipase 76 U/L (13-60) H 03/31/24 15:51 All radiology interpretation(s) finalized by discharge Discharge Plan Discharge Patient Disposition: Home Clinical Impression: Intermittent palpitations Chest pain Qualifiers: Chest pain type: unspecified Qualified Code(s): R07.9 - Chest pain, unspecified Condition: Stable Prescriptions: No Action estradiol 0.01 % (0.1 mg/gram) cream 1 g vaginal DAILY Qty: 42.5 1RF Rx Instructions: Nightly for two weeks, then three times a week Norvasc 5 mg tablet 5 mg PO DAILY Qty: 90 1RF lisinopril 10 mg tablet See Rx Instructions .ROUTE .COMPLEX Qty: 90 1RF Dose Instruction: Take 1 tablet by mouth once daily Rx Instructions: Take 1 tablet by mouth once daily atorvastatin 20 mg tablet See Rx Instructions .ROUTE .COMPLEX Qty: 90 1RF Dose Instruction: Take 1 tablet by mouth once daily Rx Instructions: Take 1 tablet by mouth once daily metformin 750 mg tablet extended release 24 hr 750 mg PO BID Qty: 90 0RF Discharge Orders: Discharge ED (Routine); Ordered 03/31/24 Ordered By: Ayesha Ness Referrals: Jacqueline Valenzuela DO [Primary Care Provider] - Patient Instructions: Chest Pain (DC) Activity Restrictions/Additional Instructions: As we discussed please follow-up with your primary care tomorrow at your currently scheduled appointment. Plan will be to go forward with Holter monitor. Coding Level of Care Code ED Cake Decorator for Georgi Hernández
[2024-03-31 16:30] LABS: Alanine Aminotransferase 22 U/L (0-33); Albumin Level 4.9 g/dL (3.5-5.2); Alkaline Phosphatase 78 U/L (35-105); Anion Gap 17.1 (5-19); Aspartate Amino Transferase 17 U/L (0-32); Blood Urea Nitrogen 11 mg/dL (6-20); Calcium 10.4 mg/dL (8.5-10.5); Carbon Dioxide 26 mmol/L (22-29); Chloride 102 mmol/L (98-107); Creatinine Clr Calc Pharmacy 95.8641; Globulin 3.5 g/dL (1.3-4.6); Glomerular Filtration Rate 90.1 mL/min (90-130); Glucose 111 mg/dL (65-115); Lipase 76 U/L (13-60); Osmolality Calculated 292 mOsm/kg (285-295); Potassium 4.1 mmol/L (3.5-5.1); Sodium 141 mmol/L (136-145); Total Bilirubin 0.5 mg/dL (0.15-1.2); Total Protein 8.4 g/dL (6.6-8.7)
[2024-03-31 16:33] LABS: Troponin(5th) Baseline 8 ng/L (0-10)
--- NOTE | 2024-03-31 16:45 | ECG_ITS ---
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 Measurements Intervals Ada Rate: 96 P: 61 GA: 143 QRS: 42 QRSD: 77 T: 43 QT: 338 QTc: 427 Interpretive Statements SINUS RHYTHM LOW QRS VOLTAGE IN PRECORDIAL LEADS [QRS DEFLECTION < 1.0 mV IN CHEST LEADS] Compared to ECG 03/31/2024 14:35:28 Sinus tachycardia no longer present Electronically Signed On 03-31-2024 17:29:27 CDT by Trey Gannon M.D. [id number]
[2024-03-31 17:00] VITALS: BP 126/82; PULSE 93; RESP 14; O2SAT 99
== END 2024-03-31 17:23 | disposition home or self-care (01) ==
PROVIDERS: Emergency Medicine; Emergency Provider Physician Assistant; PCP Family Medicine
DX: R00.2 Palpitations (principal); R07.9 Chest pain, unspecified; Z79.84 Long term (current) use of oral hypoglycemic drugs; Z87.891 Personal history of nicotine dependence; E78.5 Hyperlipidemia, unspecified; E11.9 Type 2 diabetes mellitus without complications; I10 Essential (primary) hypertension
CPT/HCPCS: 36415; 71045; 80053; 83690; 84484; 85025; 93005; 99285

== ENCOUNTER → 2024-05-10 12:40 | Outpatient (BNVA) | payer OTHER, SELFPAY | PROVIDERS: PCP Family Medicine; Visit Provider Registered Nurse Neonatal Intensive Care | DX: J02.9 Acute pharyngitis, unspecified (principal) | CPT/HCPCS: 87880 ==

== ENCOUNTER → 2024-07-15 09:55 | Outpatient (BNVA) | payer OTHER, SELFPAY | PROVIDERS: PCP Family Medicine; Visit Provider Family Medicine | DX: E11.9 Type 2 diabetes mellitus without complications (principal) | CPT/HCPCS: 80053; 83036; 85025 ==

== ENCOUNTER → 2025-01-13 11:17 | Outpatient (BNVA) | payer OTHER, SELFPAY | PROVIDERS: PCP Family Medicine; Visit Provider Family Medicine | DX: E11.9 Type 2 diabetes mellitus without complications (principal) | CPT/HCPCS: 80048; 83036 ==

== ENCOUNTER 2025-10-05 13:25 | Outpatient (RCR) | payer OTHER, SELFPAY | END 2025-11-02 23:59 | disposition home or self-care (01) | LOC: SPT 13:25 | PROVIDERS: PCP Family Medicine; Visit Provider Family Medicine | DX: M75.102 Unspecified rotator cuff tear or rupture of left shoulder, not specified as traumatic (principal) | CPT/HCPCS: 97110; 97161 ==

== ENCOUNTER → 2025-10-25 08:35 | Outpatient (BNVA) | payer OTHER, SELFPAY | PROVIDERS: PCP Family Medicine; Visit Provider Family Medicine | DX: E11.9 Type 2 diabetes mellitus without complications (principal) | CPT/HCPCS: 80053; 80061; 83036; 84439; 84443; 85025 ==